=== PATIENT | female | born 1965 | race American Indian/Alaskan Native ===

== ENCOUNTER 2016-08-15 16:11 | Outpatient (CLI) | payer OTHER | END 2016-08-15 16:12 | disposition home or self-care (01) | LOC: LABHHL 16:11 | PROVIDERS: ATTEND Surgery | DX: L72.0 Epidermal cyst (principal) | CPT/HCPCS: 88304 ==

== ENCOUNTER 2018-07-02 07:07 | Day surgery (SDC) | payer OTHER ==
[2018-07-02] MEDS ORDERED: WATER FOR IRRIG STERILE IR ONE (07:25)
[2018-07-02] MEDS ORDERED: NACL 0.9% 1000 ML 1,000 ML IV SCH (08:00)
--- NOTE | 2018-07-02 09:05 | Anesthesia Consultation ---
Anesthesia Consult and Med Hx Date of service: 07/02/18 - Airway Anesthetic Teeth Evaluation: Good ROM Head & Neck: Adequate Mental/Hyoid Distance: Adequate Mallampati Class: Class II Intubation Access Assessment: Probably Good - Pre-Operative Health Status ASA Pre-Surgery Classification: ASA2 Proposed Anesthetic Plan: MAC - Pulmonary Hx Sleep Apnea: Yes - Cardiovascular System Hx Hypertension: Yes
--- NOTE | 2018-07-02 09:06 | Anesthesia Day of Surgery ---
Anesthesia Day of Surgery - Day of Surgery Patient Examined: Yes Patient H&P Reviewed: Yes Patient is NPO: Yes
[2018-07-02] MEDS ORDERED: DIPRIVAN 10 MG/ML IV ONE ×3 (09:12→10:08)
--- NOTE | 2018-07-02 09:43 | Operative Report ---
PROCEDURE: Esophagogastroduodenoscopy with biopsy. INDICATIONS: This is a 53-year-old -[place] female with an underlying history of hypertension, strong family history of cancer who has lately been having some epigastric pain and discomfort, usually aggravated by food. EGD was done to make sure there was not any significant upper GI pathology present. DESCRIPTION OF PROCEDURE: Procedure was done after getting informed consent with MAC anesthesia. Instrument was passed through the hypopharynx into the esophagus, which showed moderate distal erosive esophagitis. Biopsy was done from the distal esophagus. Stomach showed antral gastritis. Biopsy was also done from the gastric antrum, gastric body and angular incisura to rule out for H. pylori and atrophic gastritis. There was minimal bleeding from the biopsy sites. No complications associated with the procedure. The pylorus was patent. The duodenum in the first and the second portion appeared normal. There was no evidence of any gastric or duodenal ulcer present. ASSESSMENT: Epigastric pain, moderate distal erosive esophagitis, gastritis. No peptic ulcer disease noted. There was minimal bleeding from the biopsy sites. No complications associated with the procedure. The patient will be asked to avoid aspirin and aspirin-related products for the next 5 days. Follow up in the office in 1-2 weeks' time. The patient will be treated with PPI. Colonoscopy will be done as part of colon polyp screening. Gretchen SCHROEDER was in the room throughout the entirety of the procedure. JOB# [id number] LIZZIE/ZAHRAA
--- NOTE | 2018-07-02 10:04 | Procedure Note ---
Date of procedure: 07/02/18 Pre-op diagnosis: Dyspepsia/ Colon Polyp Screening Post-op diagnosis: other (Moderate, Erosive Esophagitis/ Gastritis/ Moderate, Proximal Colon Diverticular Disease/ Multiple, Small (possibly Hyperplastic) Polyps/ Minor, Internal Hemorrhoid) Procedure: EGD with Biopsy and Colonoscopy with Biopsy Anesthesia: VERONICA Surgeon: MARCUS WONG Estimated blood loss: minimal Pathology: list Specimen disposition: to lab Condition: stable Disposition: same day (Treat with PPI. Avoid aspirin and NSAID for 5 days and encourage fiber intake and follow up in 1 to 2 weeks ([phone]).)
--- NOTE | 2018-07-02 10:54 | Operative Report ---
PROCEDURE: Colonoscopy with biopsy. INDICATIONS: This is a 53-year-old -[place] female, who does have a family history of cancer and colonoscopy was done as part of colon polyp screening. EGD done prior to that had shown presence of moderate erosive esophagitis and gastritis for which the patient is to be placed on omeprazole. Colonoscopy was done to assess for colon polyps. DESCRIPTION OF PROCEDURE: Procedure was done after getting informed consent with MAC anesthesia. Initial rectal exam was unremarkable. Instrument was passed through the rectum onto the cecum, which was identified with ileocecal valve and the appendiceal orifice. The patient's ileocecal valve was slightly prominent possibly secondary to a lipoma. There were some moderate diverticula noted in the proximal colon. The remaining part of the proximal and the transverse colon showed normal mucosa. There was a small polyp probably 5-6 mm in diameter noted in the descending colon. The remaining part of the descending colon, the sigmoid showed normal mucosa and multiple polyps were noted in the rectum, possibly hyperplastic in type, which was small and removed by cold biopsy. There was minimal bleeding from the biopsy sites and no complications associated with the procedure. The rectum showed minor internal hemorrhoids on the retroverted view. ASSESSMENT: Colon polyp screening, multiple small colon polyps noted, possibly hyperplastic involving the rectum and one in the descending colon, moderate right colon diverticular disease, minor internal hemorrhoids. Again, there was minimum bleeding from the biopsy sites and no complications associated with the procedure. The patient will be encouraged to take fiber supplements, avoid aspirin and aspirin-related products for the next 4-5 days and follow up in the office in 1-2 weeks' time. The patient will also be given prescription for omeprazole for the upper GI findings of moderate erosive esophagitis and gastritis. Gretchen Lincoln was in the room throughout the entirety of the procedure. JOB# [id number] LIZZIE/ZAHRAA
[2018-07-04 11:35] VITALS: BP 129/75
== END 2018-07-02 07:08 | disposition home or self-care (01) ==
LOC: GIO 07:07
DX: Z12.11 Encounter for screening for malignant neoplasm of colon (principal); K29.50 Unspecified chronic gastritis without bleeding; D12.8 Benign neoplasm of rectum; K63.5 Polyp of colon; I10 Essential (primary) hypertension; G47.30 Sleep apnea, unspecified; K63.89 Other specified diseases of intestine; Z80.0 Family history of malignant neoplasm of digestive organs; Z98.890 Other specified postprocedural states
CPT/HCPCS: 43239; 45380; 88305; 88342; J2704; J7030